=== PATIENT | male | born 1995 | race Caucasian/White ===

== ENCOUNTER 2017-08-16 20:08 | Emergency (ER) | payer SELFPAY ==
[~2017-08-16] VITALS: Ht 180.3 cm; Wt 78.8 kg
[2017-08-16 20:11] VITALS: TEMP 36.6; Ht 180.3 cm; Wt 78.8 kg
[2017-08-16] MEDS ORDERED: ONDANSETRON INJ 2 MG/ML 2 ML VIAL IV STA (20:29)
[2017-08-16] MEDS ORDERED: MoRPHine SULFATE 4 MG/ML 1 ML CARP\\VIAL IV ONE ×2 (20:30→23:30)
[2017-08-16] MEDS ORDERED: SODIUM CHLORIDE 0.9% 1000ML 1,000 ML IV ONE (20:30)
[2017-08-16 21:04] VITALS: O2SAT 98
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
[2017-08-16 21:46] LABS: ALBUMIN 4.6 gm/dl (3.4-5.0); CALCIUM 9.4 mg/dl (8.5-10.1); CREATININE 1.02 mg/dl (0.60-1.40); POTASSIUM 3.8 mmol/L (3.5-5.1)
[2017-08-16 22:09] LABS: BASO % 0.3 %; BASO ABS # 0.04 K/uL (0-0.2); EOS % 0.2 %; EOS ABS # 0.03 K/uL (0-0.5); HEMATOCRIT 40.2 % (42-52); HEMOGLOBIN 14.2 g/dL (14.0-18.0); IG# 0.05 K/uL (0.00-0.02); LYMPH % 11.4 %; LYMPH ABS # 1.75 K/uL (1.2-3.4); MEAN CELL VOLUME 88.9 fL (80-100); MEAN CORPUSCULAR HEMOGLOBIN 31.4 pg (25-34); MEAN CORPUSCULAR HGB CONC 35.3 g/dl (32-36); MEAN PLATELET VOLUME 10.9 fL (7.4-10.4); MONO % 5.8 %; MONO ABS # 0.89 K/uL (0.11-0.59); NEUT ABS # 12.65 K/uL (1.4-6.5); PLATELET COUNT 269 K/uL (130-400); RED CELL DISTRIBUTION WIDTH CV 12.9 % (11.5-14.5); RED CELL DISTRIBUTION WIDTH SD 41.6 fL (36.4-46.3); WHITE BLOOD COUNT 15.41 K/uL (4.8-10.8)
[2017-08-16] MEDS ORDERED: OPTIRAY 320 IV PRN (22:45)
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
[2017-08-16] MEDS ORDERED: KETOROLAC TROMETHAMINE 30 MG/ML VIAL IV STA (23:19)
[2017-08-16] MEDS ORDERED: OXYC1TAB3 PO (23:22)
[2017-08-16] MEDS ORDERED: OXYCODONE IR HOME PACK PO ONE (23:30)
[2017-08-16 23:34] VITALS: BP 98/65
[2017-08-16 23:41] VITALS: PULSE 62; O2SAT 96
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
== END 2017-08-16 23:54 | disposition home or self-care (01) ==
LOC: C.EDB 20:10 → C.EDA 23:54
DX: T14.8XXA Other injury of unspecified body region, initial encounter (principal); S20.419A Abrasion of unspecified back wall of thorax, initial encounter; S20.312A Abrasion of left front wall of thorax, initial encounter; X58.XXXA Exposure to other specified factors, initial encounter; V28.0XXA Motorcycle driver injured in noncollision transport accident in nontraffic accident, initial encounter; Y93.89 Activity, other specified; F17.210 Nicotine dependence, cigarettes, uncomplicated

== ENCOUNTER 2017-08-24 11:12 | Emergency (ER) | payer SELFPAY ==
[~2017-08-24] VITALS: Ht 182.9 cm; Wt 79.6 kg
[~2017-08-24 11:12] MED LIST: OXYC1TAB3 PO
[2017-08-24 11:20] VITALS: Ht 182.9 cm; Wt 79.6 kg
--- NOTE | 2017-08-24 12:40 | DIAGNOSTIC IMAGING REPORT ---
R VENOUS DOPP LOWER EXT UNILAT HISTORY: 22 years-old Male R lower leg pain acute right leg pain COMPARISON: None available TECHNIQUE: Multiple real-time sonographic images of the right lower extremity deep venous structures were obtained assessing grayscale appearance, color and spectral flow FINDINGS: There is normal compressibility, flow, phasicity and augmentation of the right lower extremity deep venous structures. Subcutaneous and deep tissue edema is noted about the medial right calf. No drainable fluid collection. IMPRESSION: No sonographic evidence of deep venous thrombosis. The above report was generated using voice recognition software. It may contain grammatical, syntax or spelling errors. Electronically signed by: Caleb Bill M.D. 08/24/2017 12:38 PM Dictated Date/Time: 08/24/2017 12:37 PM
[2017-08-24 13:48] VITALS: BP 126/64; PULSE 68; TEMP 36.7; O2SAT 98
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
== END 2017-08-24 13:49 | disposition home or self-care (01) ==
LOC: C.EDB 11:13 → C.EDD 13:49
DX: S80.11XA Contusion of right lower leg, initial encounter (principal); V28.0XXA Motorcycle driver injured in noncollision transport accident in nontraffic accident, initial encounter; Y93.89 Activity, other specified; Z83.3 Family history of diabetes mellitus; Z82.49 Family history of ischemic heart disease and other diseases of the circulatory system; Z80.9 Family history of malignant neoplasm, unspecified; Z72.0 Tobacco use; Z91.030 Bee allergy status